=== PATIENT | female | born 1965 | race Caucasian/White ===

== ENCOUNTER 2018-06-11 12:12 | Outpatient (CLI) | payer OTHER | END 2018-06-11 12:13 | disposition home or self-care (01) | LOC: BICMAMMO 12:12 | PROVIDERS: ATTEND Family Medicine | DX: Z12.31 Encounter for screening mammogram for malignant neoplasm of breast (principal); Z80.3 Family history of malignant neoplasm of breast | CPT/HCPCS: 77063; 77067 ==

== ENCOUNTER 2019-07-01 09:48 | Outpatient (CLI) | payer OTHER ==
--- NOTE | 2019-07-01 11:23 | CT ---
CT NECK WITH IV CONTRAST: 07/01/2019 HISTORY: Left submandibular nodule. COMPARISON: None. TECHNIQUE: Axial CT imaging at 2 mm intervals from the skull base through the lung apices with IV contrast. Ethel nal and sagittal reformatted imaging obtained. FINDINGS: The imaged paranasal sinuses/mastoid air cells are well aerated. The imaged lung apices are unremarkable. The retroantral and the parapharyngeal fat appears clear bilaterally. The parotid glands and the subm andibular glands appear unremarkable. There is a marker overlying an area of palpable concern at the axial level of the angle of the mandib le laterally, on the left. This overlies the masseter muscle and a normal appearing superficial left parotid lobe inferiorly. There is a mildly prominent lymph node anterior to the masseter muscle on the left, adjacent to a branch of the retromandibular vein. Perhaps this small lymph node is the lesion of palpable concern, which measures in the 5-6 mm range in short axis dimension. Additional gilbert bcentimeter nodes are noted adjacent to bilateral submandibular glands. There are multiple mildly prominent submandibular nodes noted anteriorly, measuring up to 6-7 mm on the right. There is a moder ately enlarged level 2A lymph node on the left, measuring 1.1 cm in short axis dimension on axial image 55. The tonsillar pillars, epiglottis and pre-epiglottic fat, hyoid bone, thyroid cartilage, cricoid cart ilage, and thyroid gland appear grossly unremarkable. The imaged lung apices appear unremarkable. Vascular structures of the neck appear unremarkable. No acute osseous abnormality. IMPRESSION: Mild lymph node prominence within the neck, left greater than right. In the area of palpable concern there is a subcentimeter node adjacent to the masseter muscle which could reflect the palpable abnormality. No enlarged lymph node or mass lesion is seen in the area of palpable concern. Transcribed Date/Time: 07/01/2019 11:37 AM
== END 2019-07-01 09:49 | disposition home or self-care (01) ==
LOC: SCSCT 09:48
PROVIDERS: ATTEND Student in an Organized Health Care Education/Training Program
DX: R59.1 Generalized enlarged lymph nodes (principal)
CPT/HCPCS: 70491

== ENCOUNTER 2019-07-03 13:22 | Outpatient (CLI) | payer OTHER ==
--- NOTE | 2019-07-03 15:10 | MMO ---
Bilateral MAMMO Bilat Screen [facility]. CLINICAL HISTORY: Patient is 53 years old and is seen for screening. The patient has the following family history of breast cancer: mother, at age 80. The patient has no personal history of cancer. VIEWS: The views performed were: bilateral craniocaudal with tomosynthesis and bilateral mediolateral oblique with tomosynthesis. FILMS COMPARED: The present examination has been compared to prior imaging studies performed at [facility] on 11/13/2013, 08/12/2015, 03/22/2017 and 06/11/2018. This study has been interpreted with the assistance of computer-aided detection. MAMMOGRAM FINDINGS: There are scattered fibroglandular densities. There are no suspicious masses, suspicious calcifications, or new areas of architectural distortion. IMPRESSION: THERE IS NO MAMMOGRAPHIC EVIDENCE OF MALIGNANCY. A ROUTINE FOLLOW-UP MAMMOGRAM IN 1 YEAR IS RECOMMENDED. THE RESULTS OF THIS EXAM WERE SENT TO THE PATIENT. ACR BI-RADS Category 1 - Negative MAMMOGRAPHY NOTE: 1. A negative mammogram report should not delay a biopsy if a dominant of clinically suspicious mass is present. 2. Approximately 10% to 15% of breast cancers are not detected by mammography. 3. Adenosis and dense breasts may obscure an underlying neoplasm. Reported by: AUDREY LOERA MD Electonically Signed: [id number]
== END 2019-07-03 13:23 | disposition home or self-care (01) ==
LOC: BICMAMMO 13:22
PROVIDERS: ATTEND Family Medicine
DX: Z12.31 Encounter for screening mammogram for malignant neoplasm of breast (principal); Z80.3 Family history of malignant neoplasm of breast
CPT/HCPCS: 77063; 77067

== ENCOUNTER 2020-05-19 09:40 | Outpatient (CLI) | payer BC ==
--- NOTE | 2020-05-19 11:31 | MRI ---
MRI Lower Ext Jt Rt WO Con History: Medial meniscal tear Comparison: Radiograph September 2019 Findings: Medial meniscus: Low-grade interstitial meniscal degeneration. 2 mm medial gutter extrusion . Mild free edge fraying. No displaced tear Lateral meniscus: Intact ACL, PCL, MCL and LCL are intact. Extensor mechanism: Quadriceps tendon, patella and patellar tendon are intact Cartilage: Patellofemoral compartment: Multifocal full-thickness chondral fissures of the lateral patellar facet with subcortical reactive marrow change. 50-75% chondral fissures of the trochlea. Medial compartment: 25% chondral fraying weightbearing surface medial tibial plateau and medial femor al condyle. Lateral compartment: Intact Posterior flexion zones are intact Soft tissues: Moderate-large joint effusion. Abnormal posterior medial capsular swelling. Small focus of susceptibility along the medial femoral condyle. Small focus of susceptibility along the medial capsule may be from prior intervention. 2 x 3 mm body along the posterior medial capsule adjacent to the tibial rim stress response. Bones: Stress changes posterior medial tibial rim. Muscles: Muscle signal and bulk is normal. Impression: 1. Subtle stress changes posterior medial tibial rim with minimal gutter extrusion of the medial meni scus which has low-grade intrasubstance degeneration without tear. Abnormal adjacent capsular edema and small 2 x 3 mm body. 2. 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 3. Foci of susceptibility along the medial capsule suggests prior surgical intervention.
== END 2020-05-19 09:41 | disposition home or self-care (01) ==
LOC: SCSMRI 09:40
PROVIDERS: ATTEND Orthopaedic Surgery
DX: S83.241A Other tear of medial meniscus, current injury, right knee, initial encounter (principal); R60.0 Localized edema

== ENCOUNTER 2020-10-31 16:20 | Outpatient (CLI) | payer BC ==
[2020-10-31 17:05] LABS: #Basophils 0.1 10x3/uL (0.0-0.2); #Eosinphils 0.2 10x3/uL (0.0-0.5); #Monocytes 0.9 10x3/uL (0.0-1.1); #Neutrophils 6.7 10x3/uL (1.5-8.4); %Basophils 0.8 % (0.0-2.0); %Eosinophils 2.3 % (0.0-6.0); %Lymphocytes 23.8 % (18.0-47.0); %Monocytes 8.9 % (0.0-10.0); %Neutrophils 63.8 % (40.0-75.0); Hemoglobin 12.8 g/dL (12.0-15.5); Mean Corpuscular HGB CONC 32.2 g/dL (32.0-36.0); Mean Corpuscular Hemoglobin 27.7 pg (27.0-33.0); Mean Corpuscular Volume 86.1 fl (81.6-98.3); Mean Platelet Volume 10.3 fl (7.4-10.4); Platelet Count 261 10x3/uL (150-450); RBC Distribution Width 13.3 % (11.5-14.5); Red Blood Cell (RBC) Count 4.62 10x6/uL (3.90-5.03); White Blood Cell (WBC) Count 10.5 10x3/uL (3.5-10.5)
[2020-10-31 17:19] LABS: Anion Gap 12 mmol/L (10-20); BUN (Urea Nitrogen) 13 mg/dL (9.8-20.1); Calc. Creatinine Clearance 0 mL/min (70-130); Calcium 9.2 mg/dL (7.8-10.44); Carbon Dioxide 26 mmol/L (22-29); Chloride 104 mmol/L (98-107); Glucose 103 mg/dL (70-105); Potassium 4.1 mmol/L (3.5-5.1); Sodium 138 mmol/L (136-145)
[2020-11-01 02:12] LABS: SARS-CoV-2 PCR by NAA Not Detected (NotDetected)
== END 2020-10-31 16:21 | disposition home or self-care (01) ==
LOC: LABBT 16:20
PROVIDERS: ATTEND Orthopaedic Surgery
DX: Z01.812 Encounter for preprocedural laboratory examination (principal); Z20.822 Contact with and (suspected) exposure to COVID-19; S83.241A Other tear of medial meniscus, current injury, right knee, initial encounter
CPT/HCPCS: 80048; 85025; 87635; U0003; U0005

== ENCOUNTER 2020-11-03 08:28 | Day surgery (SDC) | payer BC ==
[2020-11-01 15:46] VITALS: BMI 33.6
[2020-11-03] MEDS ORDERED: PROPOFOL 20 ML ONE (09:22)
[2020-11-03] MEDS ORDERED: Fentanyl 100 MCG/2 ML VIAL ONE (10:39)
[2020-11-03] MEDS ORDERED: Dexamethasone 20 MG/5 ML VIAL ONE (10:45)
[2020-11-03] MEDS ORDERED: ePHEDrine Sulfate 50 MG/10 ML VIAL ONE (10:45)
[2020-11-03] MEDS ORDERED: Lidocaine 1% PF 5 ML VIAL ONE (10:45)
[2020-11-03] MEDS ORDERED: PROPOFOL 200 MG/20 ML VIAL ONE (10:45)
[2020-11-03] MEDS ORDERED: Lidocaine 2% w/Epinephrine 1:200K 20 ML VIAL ONE (10:45)
[2020-11-03] MEDS ORDERED: Ondansetron PF 4 MG/2 ML Vial ONE (10:45)
[2020-11-03] MEDS ORDERED: Bupivacaine HCl 0.5%/Epinephrine 1:200,000/PF 30 ml Vial ONE (10:45)
== END 2020-11-03 14:20 | disposition home or self-care (01) ==
LOC: SDC 08:28
PROVIDERS: ATTEND Orthopaedic Surgery
PROC: 0SBC4ZZ Excision of Right Knee Joint, Percutaneous Endoscopic Approach (ICD-10-PCS; principal; 2020-11-03)
DX: S83.241A Other tear of medial meniscus, current injury, right knee, initial encounter (principal); M22.41 Chondromalacia patellae, right knee; E66.9 Obesity, unspecified; Z68.33 Body mass index [BMI] 33.0-33.9, adult
CPT/HCPCS: J0690; J1100; J2405; J2704; J3010